=== PATIENT | female | born 1965 | race Caucasian/White ===

== ENCOUNTER → 2017-06-18 | Outpatient (CLI) | payer OTHER ==
--- NOTE | 2017-06-18 09:18 | US ---
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 Goiter GLAND SIZE: Right Lobe: 5.4 x 2.0 x 2.6 cm Overall Parenchyma: heterogenous Left Lobe: 5.6 x 2.3 x 2.3 cm Overall Parenchyma: heterogeneous Isthmus Thickness: 0.5 cm NODULES RIGHT: # of nodules measured on right: 3 1. 1.4 X 1.0 x 1.2 cm mixed nodule at the upper pole with well-defined margins; . This nodule is w ider than tall and shows no intranodular vascularity. Prior size: no prior 2. 2.4 X 1.3 x 2.0 cm mixed nodule at the upper/mid pole with well-defined margins; . This nodule i s wider than tall and shows intranodular vascularity. Prior size: no prior 3. 3.1 X 1.7 x 2.2 cm mixed nodule at the lower pole with well-defined margins; . This nodule is wi ade than tall and shows intranodular vascularity. Prior size: no prior LEFT: # of nodules measured on left: 3 1. 1.6 X 0.8 x 1.2 cm mixed nodule at the upper pole with well-defined margins; . This nodule is w ider than tall and shows intranodular vascularity. Prior size: no prior 2. 1.1 X 0.8 x 1.1 cm mixed nodule at the lower pole with well-defined margins; . This nodule is wi ade than tall and shows no intranodular vascularity. Prior size: no prior 3. 1.1 X 1.0 x 1.2 cm mixed nodule at the lower pole with well-defined margins; . This nodule is wi ade than tall and shows intranodular vascularity. Prior size: no prior ISTHMUS: # of nodules measured in the isthmus: 1 1. 0.8 X 0.5 x 0.6 cm hypoechoic solid nodule on the right isthmus with well-defined margins; . Th is nodule is wider than tall and shows intranodular vascularity. Prior size: no prior Bilateral neck scanned, lymph nodes visualized left neck Multiple thyroid nodules noted, largest 3 measured bilaterally, and largest 1 measured on the isthmus IMPRESSION: 1. Bilateral thyroid nodules. These are greater than 1 cm. Consider correlation with nuclear medicine thyroid scan.
--- NOTE | 2017-06-18 14:28 | EST ---
EXERCISE STRESS DATE OF SERVICE: 06/18/2017 AGE: 52 SEX: Female HT: WT: 239 pounds PROTOCOL: BRAD STAGE: II DURATION OF EXERCISE: 6 minutes HEART RATE REST: 82 BLOOD PRESSURE REST: 129/93 MAXIMUM HEART RATE ACHIEVED: 163 MAXIMUM BLOOD PRESSURE: 193/84 85% MPHR: 142 100% MPHR: 167 METS: 7.3 INDICATIONS: Chest pain. CLINICAL INFORMATION: Baseline rhythm is sinus mechanism, rate of 82, normal axis, intervals. Normal electrocardiogram. Baseline blood pressure 129/93 mmHg. Patient exercised on Brad protocol for 6 minutes, reaching peak rate of 163 beats per minute, which is equal to 97% maximum predicted heart rate. Peak blood pressure 193/84 mmHg. Test was terminated secondary to fatigue. There was no chest pain. Electrocardiograph monitoring revealed no evidence of diagnostic ischemic ST deviation. CONCLUSION: 1. Average exercise tolerance with normal electrocardiographic response to exercise. 2. No evidence of arrhythmia. MMODL / IJN: [id number] /
== END | disposition home or self-care (01) ==
LOC: RADUSWWP 08:15
PROVIDERS: ATTEND Family Medicine
DX: E04.2 Nontoxic multinodular goiter (principal); R07.89 Other chest pain
CPT/HCPCS: 76536; 93017

== ENCOUNTER → 2017-07-07 | Outpatient (CLI) | payer OTHER ==
--- NOTE | 2017-07-08 09:43 | NM ---
EXAMINATION TYPE: NM thyroid image w uptake DATE OF EXAM: 07/08/2017 COMPARISON: Thyroid ultrasound June 18, 2017. HISTORY: Multinodular goiter per order. Symptoms of thyroid swelling, excess sweating, change in hair , nails, appetite, weight gain, eyes, as well as symptoms of irritability, insomnia, palpitations, an d difficulty swallowing and breathing all per patient. TECHNIQUE: Thyroid iodine uptake is calculated and images performed after the oral administration of 326 uCi 1-123 Capsule. FINDINGS: Scan images show heterogeneity with increased uptake lower pole level right thyroid likely corresponds to dominant 3.1 cm mixed nodule at this level. There is diminished uptake lower pole leve l left thyroid that does not correspond to definitive nodule. Overall heterogeneity is likely produc t of multiple small nodules and heterogeneous echotexture seen on recent ultrasound. The 4 hour iodine uptake is calculated at 12%, in the normal range (normal range 8-14%). The 24-hour iodine uptake is calculated at 31% , in the normal range (normal range 15-35%). IMPRESSION: Normal uptake. Heterogeneous scan without definitive worrisome focal dominant cold nodule . Findings correlate with ultrasound and suspected multinodular goiter.
== END | disposition home or self-care (01) ==
LOC: RADNMMAIN 08:44
PROVIDERS: ATTEND Family Medicine
DX: E04.2 Nontoxic multinodular goiter (principal)
CPT/HCPCS: 78014; A9516